=== PATIENT | female | born 1950 | race Two or more races ===

== ENCOUNTER 2019-04-20 08:37 | Outpatient (CLI) | payer MEDICARE, SELFPAY ==
--- NOTE | 2019-04-20 09:13 | ECHO_ITS ---
Patient Info Name: Ivan Dubon Age: 68 years : 1950 Gender: Female Ht: 63 in Wt: 160 lbs BSA: 1.82 m2 HR: 69 bpm BP: 163 / 86 mmHg Technical Quality: Good Exam Date: 04/20/2019 9:24 AM Exam Location: [facility] Patient Status: Outpatient Admit Date: 04/20/2019 Staff Ordering Physician: Elder Rosales DO [employer] Operator: Maria Guadalupe Yates RDCS Attending Provider: Elder Rosales DO Referring Physician: Bobby QUINN; Exam Type: CA echo doppler color flow Study Info Indications R01.1 - Cardiac murmur, unspecified Complete two-dimensional, color flow and Doppler transthoracic echocardiogram is performed. Summary 1. Left ventricular chamber dimension is normal. 2. Ventricular septum is sigmoid shaped. 3. Left ventricular systolic function is normal, estimated at 60-65%. 4. The left ventricular diastolic function is grade I diastolic dysfunction. 5. E/e' 12 is mildly elevated. 6. Global longitudinal strain is mildly abnormal at -16.7%. 7. Left atrial chamber dimension is mildly enlarged. 8. There is mild aortic valve sclerosis. 9. There is trace mitral valve regurgitation. 10. There is trace tricuspid valve regurgitation. 11. No pulmonary hypertension, estimated pulmonary arterial systolic pressure is 36 mmHg. 12. There is trace pulmonic regurgitation. Left Ventricle E/e' 12 is mildly elevated. Global longitudinal strain is mildly abnormal at -16.7%. Ventricular septum is sigmoid shaped. Left ventricular chamber dimension is normal. Left ventricular systolic function is normal, estimated at 60-65%. The left ventricular diastolic function is grade I diastolic dysfunction. Right Ventricle Right ventricular chamber dimension is normal. Right ventricular systolic function is normal. Left Atria Left atrial chamber dimension is mildly enlarged. Right Atria Right atrial chamber dimension is normal. Aortic Valve The aortic valve is trileaflet. There is mild aortic valve sclerosis. There is no aortic valve stenosis. There is no aortic valve regurgitation. Pulmonic Valve There is trace pulmonic regurgitation. Mitral Valve There is no mitral valve stenosis. There is trace mitral valve regurgitation. Tricuspid Valve There is trace tricuspid valve regurgitation. No pulmonary hypertension, estimated pulmonary arterial systolic pressure is 36 mmHg. Pericardium/Pleural There is no pericardial effusion. Inferior Vena Cava Normal inferior vena cava with >50% collapse upon inspiration consistent with normal right atrial pressure, 5 mmHg. Aorta The aortic root size at the sinus of Valsalva is normal. Left Ventricular Outflow Tract Name Value Normal LVOT 2D LVOT Diameter 2.0 cm LVOT Doppler LVOT Peak Gradient 8 mmHg LVOT Mean Gradient 4 mmHg LVOT VTI 30 cm LVOT VTI/AV VTI Ratio 0.8 LVOT Stroke Volume 93 ml LVOT CO 6.3 l/min LVOT CI 3.5 l/min/m2 Pulmo
== END 2019-04-20 08:38 | disposition home or self-care (01) ==
PROVIDERS: PCP Family Medicine; Visit Provider Internal Medicine Cardiovascular Disease
DX: R01.1 Cardiac murmur, unspecified (principal)
CPT/HCPCS: 93306

== ENCOUNTER 2020-04-28 14:15 | Outpatient (CLI) | payer MEDICARE, SELFPAY ==
--- NOTE | ~2020-04-28 | US_ITS ---
EXAMINATION: US venous doppler [facility] EXAM DATE: 04/28/2020 14:53 INDICATION: Left leg pain and swelling. TECHNIQUE: Multiple grayscale, color flow and Doppler images of the left lower extremity deep venous system were obtained and reviewed. Comparison is made to prior examination from 03/09/2019. FINDINGS: The left common femoral, femoral and profunda veins demonstrate normal color flow, respirat ory variation, augmentation and compressibility. Compressibility, color flow confirmed within the le ft popliteal, posterior tibial, peroneal, and greater saphenous veins. There is a Delarosa's cyst measu ring 3.4 x 1.3 x 1.7 cm, has decreased in size compared to prior study. IMPRESSION: 1. No left lower extremity deep venous thrombosis. 2. Moderate sized Delarsoa's cyst. Reviewed, dictated and finalized at location A. IMPRESSION: 1. No left lower extremity deep venous thrombosis. 2. Moderate sized Delarosa's cyst.
== END 2020-04-28 14:16 | disposition home or self-care (01) ==
PROVIDERS: PCP Family Medicine; Visit Provider Internal Medicine Cardiovascular Disease
DX: R60.0 Localized edema (principal); M71.22 Synovial cyst of popliteal space [Baker], left knee
CPT/HCPCS: 93971

== ENCOUNTER 2020-10-27 15:01 | Outpatient (CLI) | payer MEDICARE, SELFPAY ==
[2020-10-27 15:44] LABS: Alanine Aminotransferase 21 U/L (4-35); Albumin Level 3.9 g/dL (3.5-5.1); Alkaline Phosphatase 50 U/L (38-126); Anion Gap 7 mmol/L (8-16); Aspartate Amino Transferase 31 U/L (14-36); Bilirubin,Total 0.9 mg/dL (0.2-1.3); Blood Urea Nitrogen 12 mg/dL (7-17); Calcium 9.1 mg/dL (8.4-10.2); Carbon Dioxide 27 mmol/L (22-30); Chloride 107 mmol/L (98-107); Cholesterol 157 mg/dL (0-200); Estimated Glomerular Filt Rate > 60; Glucose 102 mg/dL (65-110); HDL Direct 52 mg/dL; Potassium 3.8 mmol/L (3.4-5.0); Sodium 141 mmol/L (137-145); Triglycerides 147 mg/dL (<150)
[2020-10-27 15:55] LABS: LDL Cholesterol Direct 75 mg/dL
== END 2020-10-27 15:02 | disposition home or self-care (01) ==
LOC: ANHLAB 15:03
PROVIDERS: PCP Family Medicine; Visit Provider Internal Medicine Cardiovascular Disease
DX: I10 Essential (primary) hypertension (principal)
CPT/HCPCS: 36415; 80053; 80061

== ENCOUNTER 2023-08-21 07:24 | Outpatient (CLI) | payer MEDICARE, SELFPAY ==
--- NOTE | ~2023-08-21 | US_ITS ---
US abdomen complete EXAMINATION: US Abdomen Complete INDICATION: Thrombocytopenia PROCEDURE: Realtime High Resolution abdomen ultrasound. COMPARISON: No prior studies for comparison FINDINGS: Gallbladder within normal limits. No gallstones, pericholecystic fluid, gallbladder wall t hickening or biliary dilatation. Common bile duct is not well visualized. Mm. Liver echotexture within normal limits without focal mass. Pancreas is obscured by bowel gas. Spleen has a slightly irregular shaped, although no discrete masses are identified. There are punctate echog enic foci in the spleen, possibly calcified granulomas. Renal echotexture is within normal limits ruth aterally without hydronephrosis, contour deforming mass or renal stone. Right kidney measures 10.9 cm . Left kidney measures 11.7 cm. There is right renal cyst measuring 11 mm. No solid masses. Visualized aspects of the aorta and IVC are within normal limits. Portal vein is patent. No sonograph ic Son's sign indicated by the technologist. IMPRESSION: 1: Unremarkable abdominal ultrasound. Reviewed, dictated and finalized at location B.
== END 2023-08-21 07:25 | disposition home or self-care (01) ==
PROVIDERS: PCP Family Medicine; Visit Provider Internal Medicine Hematology & Oncology
DX: D69.59 Other secondary thrombocytopenia (principal)
CPT/HCPCS: 76700

== ENCOUNTER 2023-12-09 13:28 | Outpatient (CLI) | payer MEDICARE, SELFPAY ==
[2023-12-09 14:04] LABS: Hematocrit 47.4 % (37.0-47.0); Hemoglobin 16.1 g/dL (12.0-15.0); Mean Corpuscular Hemoglobin 31.1 pg (26-34); Mean Corpuscular Volume 91.7 fl (80-100); Platelet Count Result 146 k/mm3 (150-375); Red Blood Count 5.17 M/mm3 (4.2-5.4); Red Cell Distribution Width 13.2 % (11.5-14.5); White Blood Count 7.3 K/mm3 (4.5-10.0)
[2023-12-09 16:49] LABS: Iron 129 ug/dL (37-170)
[2023-12-09 17:01] LABS: Percent Iron Saturation 57 % (20-50)
[2023-12-09 17:56] LABS: Folic Acid 7.7 ng/mL (2.76->20)
== END 2023-12-09 13:29 | disposition home or self-care (01) ==
LOC: ANHLAB 13:29
PROVIDERS: PCP Family Medicine; Visit Provider Internal Medicine Hematology & Oncology
DX: D64.9 Anemia, unspecified (principal)
CPT/HCPCS: 36415; 82607; 82728; 82746; 83540; 83550; 85027